=== PATIENT | male | born 1955 | race African-American/Black ===

== ENCOUNTER 2023-09-07 13:39 | Emergency (ER) | payer OTHER ==
[2023-09-07 13:51] VITALS: BP 132/74; PULSE 81; RESP 18; TEMP 98; BMI 27.4
[2023-09-07] MEDS ORDERED: LIDOCAINE 4% PATCH TP ONE ×2 (14:47→15:22)
[2023-09-07] MEDS ORDERED: ACETAMINOPHEN 500 MG TABLET (FP) PO ONE (14:47)
[2023-09-07] MEDS ORDERED: ACETAMINOPHEN 500 MG TABLET (FP) ONE (15:22)
[2023-09-07 16:52] LABS: BASO % 0.2 % (0-2.0); EOS % 0.9 % (0-4.5); HEMATOCRIT 40.2 % (35.4-49); HEMOGLOBIN 13.6 GM/dL (11.7-16.9); LYMPH % 14.8 % (8-40); MCH 28.8 pg (25.7-33.7); MCHC 33.9 g/dl (32.0-35.9); MEAN PLT VOLUME 8.7 fl (7.5-11.1); MONO % 11.7 % (3.8-10.2); NEUT % 72.4 % (42.8-82.8); PLATELET COUNT 159 10^3/uL (134-434); RBC 4.73 M/mm3 (4.00-5.60); RDW 13.2 % (11.9-15.9); WHITE BLOOD COUNT 9.4 K/mm3 (4.0-10.0)
[2023-09-07 17:40] LABS: ALBUMIN 3.6 g/dl (3.4-5.0); BLOOD UREA NITROGEN 13.2 mg/dL (7-18); CALCIUM 8.7 mg/dL (8.5-10.1)
[2023-09-07 17:44] LABS: CREATININE 0.9 mg/dL (0.55-1.3)
[2023-09-07 17:45] LABS: BILIRUBIN,TOTAL 0.5 mg/dL (0.2-1); TOT PROT 7.2 g/dl (6.4-8.2)
[2023-09-07 17:58] LABS: ERYTHROCYTE SEDIMENTATION RATE 13 mm/hr (0-20)
[2023-09-07] MEDS ORDERED: IBUPROFEN 400 MG TABLET (FP) PO ONE ×2 (18:12→18:18)
[2023-09-07] MEDS ORDERED: LIDOCAINE PATCH REMOVAL MC SCH (22:00)
== END 2023-09-07 18:17 | disposition home or self-care (01) ==
LOC: JER 13:39
DX: M25.552 Pain in left hip (principal); Z20.822 Contact with and (suspected) exposure to COVID-19
CPT/HCPCS: 0241U-QW; 36415; 72170-TC-FY; 73502-TC-LT-FY; 80053; 85025; 85651; 86140; 99284-25